=== PATIENT | male | born 1965 | race Caucasian/White ===

== ENCOUNTER 2021-04-22 17:12 | Observation (INO) | payer MEDICARE, SELFPAY ==
[2021-04-22] VITALS (11 sets, daily range): BP systolic 135–159; BP diastolic 83–115; PULSE 82–129; RESP 12–17; TEMP 36.6–36.8; O2SAT 96–97; BMI 37.3
--- NOTE | 2021-04-22 17:47 | EKG12_ITS ---
Test Reason : REPEAT Blood Pressure : / mmHG Vent. Rate : 129 BPM Atrial Rate : 258 BPM P-R Int : 000 ms QRS Dur : 078 ms QT Int : 282 ms P-R-T Axes : 064 082 209 degrees QTc Int : 413 ms Atrial flutter Septal infarct , age undetermined Nonspecific ST and T wave abnormality Abnormal ECG Confirmed by ZAHRAA CHAUDHARY, ARABELLA ([id number]), editor news MASSIMO MORGAN ([id number]) on 04/26/2021 11:31:09 AM Referred By: ZINA Confirmed By:ARABELLA VITAL MD
--- NOTE | 2021-04-22 17:47 | RAD_ITS ---
STUDY: X-RAY CHEST REASON FOR EXAM: Male, 55 years old. Chest pain. TECHNIQUE: Single AP portable view of the chest. COMPARISON: None. FINDINGS: Telemetry wires overlie the chest. The lungs are clear and expanded. There is no demonstrated pleural abnormality. Sternal cerclage wires are present from a prior sternotomy. The heart is mildly enlarged. Normal mediastinum and cece. Normal visualized pulmonary arteries. Normal visualized aortic arch and descending thoracic aorta. The thoracic spine is obscured by the mediastinum. Normal visualized ribs, clavicles, and shoulders. There is no demonstrated abnormality of the visualized soft tissue structures of the upper abdomen. RAD/Chest 1 View (Portable) IMPRESSION: Cardiomegaly with evidence of median sternotomy. There is no acute pulmonary disease. Electronically Signed: Gigi Hinds DO at 18:23 EST Tel [phone], Service support ,
--- NOTE | 2021-04-22 18:00 | EKG12_ITS ---
Test Reason : CP Blood Pressure : / mmHG Vent. Rate : 129 BPM Atrial Rate : 129 BPM P-R Int : 148 ms QRS Dur : 080 ms QT Int : 308 ms P-R-T Axes : 050 080 189 degrees QTc Int : 451 ms Atrial Flutter Septal infarct , age undetermined Nonspecific ST and T wave abnormality Abnormal ECG Confirmed by ZAHRAA CHAUDHARY, ARABELLA ([id number]), subeditor MASSIMO MORGAN ([id number]) on 04/26/2021 11:31:46 AM Referred By: TAPAN Confirmed By:ARABELLA VITAL MD
[2021-04-22 18:04] LABS: Absolute Lymphocyte Count 2.52 X10^3/uL (0.83-4.51); Absolute Neutrophil Count 3.8 X10^3/uL (2.0-7.7); Basophil# 0.05 X10^3/uL; Basophil% 0.7 % (0-1); Eosinophil# 0.36 X10^3/uL; Hematocrit 49.3 % (40-54); Hemoglobin 16.8 g/dL (13.0-16.5); Lymphocyte # 2.52 X10^3/ul (0.83-4.51); Lymphocyte % 35.1 % (19-41); Mean Corp Hgb Conc 34.1 g/dL (32-36); Mean Corpuscular Hgb 32.2 pg (27.0-32.0); Mean Corpuscular Volume 94.6 fL (80-94); Mean Platelet Vol. 9.9 fl (6.2-12.0); Monocyte# 0.38 X10^3/uL; Monocyte% 5.3 % (0-10); NRBC Flagged by Analyzer 0 % (0-5); Neutrophil # 3.84 X10^3/uL (2.7-7.7); Neutrophil % 53.5 % (47-70); Platelet Count 219 K/mm3 (150-450); RBC Distribution Width CV 13.3 % (11.6-14.6); RBC Distribution Width SD 46.4 fl (35.1-43.9); Red Blood Count 5.21 M/mm3 (4.6-6.2); White Blood Count 7.2 K/mm3 (4.4-11.0)
[2021-04-22 18:23] LABS: D-Dimer Quantitative (DVT/PE) 0.55 FEU/ug/m (0.27-0.49)
[2021-04-22 18:31] LABS: Anion Gap 3 (5-15); BUN 14 mg/dL (7-18); BUN/Creat Ratio 13.3 RATIO (10-20); Chloride 105 mmol/L (98-107); Creatinine, Serum 1.05 mg/dL (0.70-1.30); EST Glomerular Filtration Rate 78 mL/min (>60); Est Glom Filt Rate - Afr Amer 94 mL/min (>60); Estimated Creatinine Clearance 96.44 ml/min; Glucose 95 mg/dL (74-106); Potassium 3.8 mmol/L (3.5-5.1); Sodium Level 135 mmol/L (136-145); Troponin-I HS 5 pg/mL (3.0-78.0)
[2021-04-22] MEDS: dilTIAZem 25 MG/5 ML Vial 20 MG IV BOLUS (19:42)
[2021-04-22 19:52] LABS: Troponin-I HS 7 pg/mL (3.0-78.0)
--- NOTE | 2021-04-22 20:04 | EDS_ITS ---
HPI History of Present Illness Chief Complaint: Chest Pain Detail of Chief Complaint: No chest pain abnormal EKG Informant: other (Dr. 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 EKG was obtained because patient did not look well. He denied any symptoms. He denies any recent fever, chills night sweats. He denies any HEENT, cardiac, respiratory or GI symptoms. He states occasionally he may be short of breath. He denies history of PE or DVT. He denies leg pain, swelling or discoloration. He does have history of hypertension. He was at his 3-month interval evaluation by Dr. Zacarias Reed. Prior similar symptoms: No Recent Illness/Hospitalization: No PFSH PFSH Home Medications aspirin [Aspir-81] 81 mg PO DAILY 04/22/21 [History Last Taken Unknown] ergocalciferol (vitamin D2) [Vitamin D2] 50,000 unit PO QWEEK 04/22/21 [History Last Taken Unknown] loratadine [Claritin] 10 mg PO DAILY 04/22/21 [History Last Taken Unknown] metoprolol tartrate [Lopressor] 12.5 mg PO BID 04/22/21 [History Last Taken Unknown] sertraline [Zoloft] 50 mg PO DAILY 04/22/21 [History Last Taken Unknown] trazodone 50 mg PO QHS 04/22/21 [History Last Taken Unknown] Allergy/AdvReac Type Severity Reaction Status Date / Time codeine AdvReac Hives Verified 04/22/21 17:17 Social History (Updated 04/22/21 @ 20:[address] Adria Hernandez MD) household members: spouse Smoking Status: Former smoker substance use type: does not use ROS ROS ED Constitutional Constitutional ED: Denies chills, fever(s), subjective, sweats or weight loss Eyes Eyes: Denies blurry vision, change in vision or other ENT ENT ED: Denies ear pain, rhinorrhea or sore throat Cardiovascular Cardiovascular: Denies chest pain, orthopnea, palpitations, paroxysmal nocturnal dyspnea or racing heartbeat Respiratory/Chest Respiratory/Chest: Denies cough, dyspnea, dyspnea on exertion, orthopnea or paroxysmal nocturnal dyspnea Gastrointestinal Gastrointestinal: Denies abdominal pain, diarrhea, melena, nausea or vomiting Genitourinary Genitourinary ED: Denies dysuria, hematuria or urinary frequency Musculoskeletal Musculoskeletal: Denies arthralgias, back pain, myalgias or neck pain Integumentary Denies rash Neurologic Neurologic: Denies headache(s), paresthesias or weakness Endocrine Endocrinology: Denies polydipsia, polyphagia or polyuria Hematologic/Lymphatic Hematologic/Lymphatic: Denies easy bleeding or easy bruising EXAM Physical Exam Const Vital Signs: 04/22/21 17:13 04/22/21 17:26 04/22/21 17:37 Temperature 97.9 F Temperature Source Oral Pulse Rate 129 H 128 H Respiratory Rate 15 12 Respiratory Effort Normal Non-Labored Blood Pressure 156/115 H 143/101 H Blood Pressure Mean 128 115 Pulse Ox 96 97 Oxygen Delivery Method Room Air Room Air 04/22/21 17:49 04/22/21 18:51 04/22/21 19:00 Temperature Temperature Source Pulse Rate 120 H 105 H Respiratory Rate 17 17 Respiratory Effort Blood Pressure 159/97 H 135/92 H Blood Pressure Mean 117 106 Pulse Ox 96 96 Oxygen Delivery Method Room Air Room Air Room Air Positive well nourished, well developed and obese General Appearance ED: well developed and NAD; Negative for cyanotic, diaphoretic or pallor Nutritional Appearance: obese HEENT Reports TM's clear and moist mucous membranes Negative for trauma or tenderness Tympanic Membrane ED: Yes TM's clear Eyes PERRL and EOMs intact bilaterally General Eye ED: Negative for pale conjunctiva or scleral icterus Neck no lymphadenopathy, supple and no JVD Chest Wall palpation of chest normal Resp normal respiratory effort and clear to auscultation bilaterally Effort and Inspection: Negative for pain with movement Cardio regular rate, S1 normal heart sound, S2 normal heart sound and no murmurs Rate: tachycardic GI normal to inspection, nondistended, normoactive bowel sounds, non-tender and non-distended Palpation: soft Back/Spine no CVA tenderness Cervical Spine: Negative for cervical spine tenderness Thoracic Spine / Upper Back: Negative for thoracic spinal tenderness or paraspinal muscle tenderness Extremity normal to inspection Extremity Narrative: There is no asymmetry, swelling, discoloration, leg vein distention, palpable cords or tenderness along the distribution of the deep venous system. General Extremety ED: Negative for edema or tenderness General Extremity: Negative for edema Neuro oriented x3, CN's II-XII intact bilaterally and no sensory deficits noted Sensorium / Orientation: alert Motor Exam: strength 5/5 throughout Psych mental status grossly normal Skin no rashes or lesions noted and no wounds General Skin Exam: Negative for jaundice or pallor MDM MDM MDM Narrative Medical decision making narrative: Patient presents with abnormal EKG. Unable to get prior from [facility]. In January he had a valvuloplasty of his aortic valve and replacement of his tricuspid. They were bovine valves. He is not on an anticoagulant. First-degree G reveals a sinus tachycardia with slight J-point elevation anterior leads and flipped T waves inferior leads. With history of smoldering myeloma D-dimer was obtained and when corrected for age is normal. Troponin was obtained rule out cardiac ischemia. CBC to assess H&H and white count. Electrolyte panel was obtained to assess renal function. After noting patient was in a flutter with 2-1 block IV Cardizem was ordered and IV drip. Patient is now in a variable block with a rate of 86-95. The drip was held and he was given p.o. Cardizem. Lab Data Attestation: I reviewed the patient's lab results. Lab results narrative: First troponin is normal at 5. Delta is 2. Labs: Laboratory Results - last 24 hr 04/22/21 04/22/21 04/22/21 17:20 17:20 17:20 WBC 7.2 RBC 5.21 Hgb 16.8 H Hct 49.3 MCV 94.6 H MCH 32.2 H MCHC 34.1 RDW Std Deviation 46.4 H RDW Coeff of Nika 13.3 Plt Count 219 MPV 9.9 Immature Gran % (Auto) 0.400 Neut % (Auto) 53.5 Lymph % (Auto) 35.1 [place] % (Auto) 5.3 Eos % (Auto) 5.0 Baso % (Auto) 0.7 Absolute Neuts (auto) 3.8 Absolute Lymphs (auto) 2.52 Nucleated RBC % 0 D-Dimer Quant (PE/DVT) 0.55 H* Sodium 135 L Potassium 3.8 Chloride 105 Carbon Dioxide 27.0 Anion Gap 3 L BUN 14 Creatinine 1.05 Estim Creat Clear Calc 96.44 Est GFR (MDRD) Af Amer 94 Est GFR (MDRD) Non-Af 78 BUN/Creatinine Ratio 13.3 Glucose 95 Calcium 9.0 Troponin I High Sens 5 04/22/21 19:24 WBC RBC Hgb Hct MCV MCH MCHC RDW Std Deviation RDW Coeff of Nika Plt Count MPV Immature Gran % (Auto) Neut % (Auto) Lymph % (Auto) [place] % (Auto) Eos % (Auto) Baso % (Auto) Absolute Neuts (auto) Absolute Lymphs (auto) Nucleated RBC % D-Dimer Quant (PE/DVT) Sodium Potassium Chloride Carbon Dioxide Anion Gap BUN Creatinine Estim Creat Clear Calc Est GFR (MDRD) Af Amer Est GFR (MDRD) Non-Af BUN/Creatinine Ratio Glucose Calcium Troponin I High Sens 7 Radiography Chest X-Ray - ED: 1 View (Single view x-ray reveals sternotomy wires. Heart is enlarged. Cardiac silhouette is normal. Perihilar regions unremarkable. Lung parenchyma is unremarkable. Osseous structures are unremarkable.) Diagnostic Testing: Clinical Impression(s) from Imaging Studies Chest X-Ray 04/22/21 17:47 IMPRESSION: Cardiomegaly with evidence of median sternotomy. There is no acute pulmonary disease. Electronically Signed: Gigi Hinds DO at 18:23 EST Tel [phone], Service support , EKG Initial EKG: Attestation: I personally reviewed and interpreted this EKG as follows: Interpretation: Sinus Tachycardia (Sinus tachycardia rate of 129 with decreased anterior forces. Computer is reading inferior injury pattern. There is flipped T waves but there is no acute ST elevation ID. NH interval is 148 ms. QS duration 80 ms. QT duration 308 ms. [place] is normal.) Prior EKG tracings: not available for review Follow-up EKG: Attestation: I personally reviewed and interpreted this EKG as follows: Interpretation: Atrial Flutter (2-1 block rate of 128. There may be one portion of the initial EKG in lead III that would indicate atrial flutter. The EKG is unchanged from initial EKG. Again disagree with acute inferior ID that is being read by the computer.) Critical Care Time Critical Care Time: Yes Critical care time (excluding procedures): 30-74 minutes (32), Including time spent: (History, physical, documentation, obtaining old records and review from [facility], discussion with oncologist prior to arrival), Discussing w/Patient &/or Family/Organizational Effectiveness Director, Discussing w/Consultants and Arranging Admission or Transfer Discharge Plan Triage Chief Complaint: Chest Pain ED Provider: Adria Hernandez Dx/Rx/DC Orders Clinical Impression: Atrial flutter with rapid ventricular response, Hypertension Prescriptions: No Action metoprolol tartrate [Lopressor] 50 mg Tablet 12.5 mg PO BID RF: 0 trazodone 50 mg Tablet 50 mg PO QHS RF: 0 aspirin [Aspir-81] 81 mg Tablet,Delayed Release (Dr/Ec) 81 mg PO DAILY RF: 0 sertraline [Zoloft] 50 mg Tablet 50 mg PO DAILY RF: 0 loratadine [Claritin] 10 mg Tablet 10 mg PO DAILY RF: 0 Vitamin D2 1,000 unit Capsule 50,000 unit PO QWEEK RF: 0 Primary Care Provider: Nereida Beard NP Referrals: Nereida Beard NP, [employer] [Primary Care Provider] - Disposition Disposition: Acute Care Hospital [facility]
--- NOTE | 2021-04-22 20:08 | PCM.HP.STD ---
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 x 1 administered per EMS on route. Patient denied any chest pain or dyspnea or any recurrent symptoms which he had prior to valvular intervention. Patient did report having more caffeine on day of presentation than his normal (2 cups). Work-up in the ED included T97.9, heart rate initially 129, BP 156/115, respiratory rate 15, 96% on room air, CBC with WBC 7.2, hemoglobin 16.8, platelet 219 without marked shift, D-dimer 0.55, BMP with sodium 135 otherwise not marked appearing, troponin high-sensitivity initial 5 with repeat 7, chest x-ray with cardiomegaly with evidence of median sternotomy with no acute cardiopulmonary findings otherwise, EKG in ED w/ atrial flutter with 2:1 block-->variable block 4-5:1. In the ED patient administered Cardizem 60 mg p.o. x1. Initiall ED physician planning IV bolus and drip however he changed from 2:1 flutter block-->4-5:1 thus only oral. COVID rapid antigen pending. [facility] Medical History (Updated 04/22/21 @ 21:[address] Chula Hall MD) Anxiety and depression Former tobacco use Hypertension Obesity STARLA on CPAP Smoldering myeloma Valvular heart disease Home Medications aspirin [Aspir-81] 81 mg PO DAILY 04/22/21 [History Last Taken Unknown] ergocalciferol (vitamin D2) [Vitamin D2] 50,000 unit PO QWEEK 04/22/21 [History Last Taken Unknown] loratadine [Claritin] 10 mg PO DAILY 04/22/21 [History Last Taken Unknown] metoprolol tartrate [Lopressor] 12.5 mg PO BID 04/22/21 [History Last Taken Unknown] sertraline [Zoloft] 50 mg PO DAILY 04/22/21 [History Last Taken Unknown] trazodone 50 mg PO QHS 04/22/21 [History Last Taken Unknown] Allergy/AdvReac Type Severity Reaction Status Date / Time codeine AdvReac Hives Verified 04/22/21 17:17 Family History (Updated 04/22/21 @ 20:[address] Chula Hall MD) Mother CVA (cerebral vascular accident) Polycythemia vera other (Unknown paternal family history.) Surgical History (Updated 04/22/21 @ 20:[address] Chula Hall MD) H/O aortic valvuloplasty H/O tricuspid valve replacement H/O vasectomy Social History (Updated 04/22/21 @ 20:[address] Chula Hall MD) household members: significant other Smoking Status: Former smoker how long ago did patient quit smoking: Quit ~ 10 years prior, 2 ppd since teen until quit. alcohol intake: never substance use type: does not use ROS ROS Narrative Admission Review of Systems: CONSTITUTIONAL: No weight loss, fever, chills, weakness or fatigue. HEENT: Eyes: No visual loss, blurred vision, double vision or yellow sclerae. Ears, Nose, Throat: No hearing loss, sneezing, congestion, runny nose or sore throat. SKIN: No rash or itching, lesions, wounds. CARDIOVASCULAR: No chest pain, chest pressure or chest discomfort, palpitations, edema, orthopnea, syncopal events. RESPIRATORY: No shortness of breath, cough or sputum, wheezing, hemoptysis. GASTROINTESTINAL: No anorexia, nausea, vomiting or diarrhea, abdominal pain, melena, BRBPR. GENITOURINARY: No dysuria, frequency, urgency or retention. NEUROLOGICAL: No headache, dizziness, syncope, paralysis, ataxia, numbness or tingling in the extremities, focal weakness, change in bowel or bladder control, seizure. MUSCULOSKELETAL: No muscle, back pain, joint pain or stiffness. HEMATOLOGIC: No anemia, bleeding or bruising. LYMPHATICS: No enlarged nodes. No history of splenectomy. PSYCHIATRIC: + history of depression or anxiety. ENDOCRINOLOGIC: No reports of sweating, cold or heat intolerance. No polyuria or polydipsia. ALLERGIES: No history of asthma, hives, eczema or rhinitis. Vital Signs Vital Signs Vital Signs: 04/22/21 17:13 04/22/21 17:26 04/22/21 17:37 Temperature 97.9 F Temperature Source Oral Pulse Rate 129 H 128 H Respiratory Rate 15 12 Respiratory Effort Normal Non-Labored Blood Pressure 156/115 H 143/101 H Blood Pressure Mean 128 115 Pulse Ox 96 97 Oxygen Delivery Method Room Air Room Air 04/22/21 17:49 04/22/21 18:51 04/22/21 19:00 Temperature Temperature Source Pulse Rate 120 H 105 H Respiratory Rate 17 17 Respiratory Effort Blood Pressure 159/97 H 135/92 H Blood Pressure Mean 117 106 Pulse Ox 96 96 Oxygen Delivery Method Room Air Room Air Room Air Weight Weight: 307 lb 1.663 oz Body Mass Index (BMI) 37.3 Physical Exam Narrative Physical Examination: General: Awake, alert, oriented x 3 and cooperative, seated upright in the ED bed in no apparent distress. Skin: Normal color, normal turgor, no icterus, no cyanosis. HEENT: AT/NC, EOMI, PERRLA, MMM, no carotid bruits or JVD noted; however thickened neck makes examination difficult. Lungs: CTA bilaterally, moderate effort, mild decrease BL bases, no rales, ronchi or wheezing. Heart: Irregular irregular; no gallop, rub audible, status post valvuloplasty and TVR with murmur. Abdomen: Soft, obese, NTTP, ND, normal BS, no obvious evidence of HSM. Extremities: No cyanosis, clubbing, or edema. Neurological: Patient awake, alert, oriented as noted, cognitive function intact; pupils equally reactive to light and accommodation, cranial nerves II-XII grossly normal, moving all 4 extremities, no focal deficits, strength preserved. Psychiatric: Affect appears mildly flat otherwise normal, deferring much of history to his daughter who is present, no acute evidence of depressive or anxiety feelings. Results Lab / Micro Data Result Diagrams: 04/22/21 17:20 04/22/21 17:20 Labs: Laboratory Results - last 24 hr 04/22/21 17:20: WBC 7.2, RBC 5.21, Hgb 16.8 H, Hct 49.3, MCV 94.6 H, MCH 32.2 H, MCHC 34.1, RDW Std Deviation 46.4 H, RDW Coeff of Nika 13.3, Plt Count 219, MPV 9.9, Immature Gran % (Auto) 0.400, Neut % (Auto) 53.5, Lymph % (Auto) 35.1, [place] % (Auto) 5.3, Eos % (Auto) 5.0, Baso % (Auto) 0.7, Absolute Neuts (auto) 3.8, Absolute Lymphs (auto) 2.52, Nucleated RBC % 0 04/22/21 17:20: Sodium 135 L, Potassium 3.8, Chloride 105, Carbon Dioxide 27.0, Anion Gap 3 L, BUN 14, Creatinine 1.05, Estim Creat Clear Calc 96.44, Est GFR (MDRD) Af Amer 94, Est GFR (MDRD) Non-Af 78, BUN/Creatinine Ratio 13.3, Glucose 95, Calcium 9.0, Troponin I High Sens 5 04/22/21 17:20: D-Dimer Quant (PE/DVT) 0.55 H* 04/22/21 19:24: Troponin I High Sens 7 Radiology Impression Chest X-Ray 04/22/21 17:47 IMPRESSION: Cardiomegaly with evidence of median sternotomy. There is no acute pulmonary disease. Electronically Signed: Gigi Hinds DO at 18:23 EST Tel [phone], Service support , Assessment & Plan Assessment/Plan (1) Atrial flutter with rapid ventricular response: PLAN: The patient is a 55 y/o M w/ PMHx: STARLA on CPAP q HS, Anxiety and Depression, Valvular Heart Disease s/p AV valvuloplasty and TVR w/ bovine 11/2020, HTN, Hx smoldering myeloma, Former tobacco use, Obesity who presents to the [facility] ED on 04/22/21 with history of routine oncology visit on day of presentation prior to ED arrival with EMS call secondary to oncologist physician concern for abnormal EKG strips at the office concerning for ST elevation with history of recent heart valve replacement in November 2020 with no patient complaints at that time prompting ED transition. #1. New onset, Paroxsymal atrial flutter w/ RVR: EKG in ED w/ atrial flutter with 2:1 block-->variable block 4-5:1. Patient administered Cardizem oral as well as IV bolus with transition to Cardizem drip in ED. Will admit to PCU, maintain on telemetry, obtain cardiac enzyme serial set with initial 2 unremarkable, obtain magnesium level, obtain ECHO, obtain TSH level. Will initiate on therapeutic Lovenox. Will increase home metoprolol regimen pending Cardiology evaluation. #2. Valvular Heart Disease: s/p AV valvulopasty and TVR bovine 11/2020, ECHO requested. #3. Hypertension: Will continue home metoprolol but increase dose, continue regimen as noted above #1, as needed IV hydralazine. #4. Anxiety and Depression: Will continue home sertraline and trazodone regimen. #5. Smoldering Myeloma: Following with Dr. Reed, high risk patient, no current treatments given smoldering. Discussed case with Dr. Reed and amenable to anticoagulation if continued need. #6. Allergic rhinitis: Will continue home claritin. #7. Former tobacco use: Encourage continued tobacco cessation. #8. Obesity: Weight loss and lifestyle changes encouraged. #9. STARLA: CPAP q HS. #10. DVT prophylaxis: SCDs, therapeutic Lovenox. #11. CODE STATUS: Full Code. Daughter is SHELDON, LW in place. Charges/Coding Visit Charges OBSV E&M: 66325 Initial observation care L3
[2021-04-22] MEDS: dilTIAZem 60 MG Tablet PO (20:53)
[2021-04-22 20:55] LABS: Magnesium 2.2 mg/dL (1.6-2.6)
[2021-04-22 21:04] LABS: BNP,B-Type NATRIURETIC PEPTIDE 85.4 pg/mL (0-100)
--- NOTE | 2021-04-22 21:12 | ECHOD_ITS ---
Reason For Study: AFIB/FLUTTER Procedure This was a 2D Doppler, Color Flow transthoracic echocardiogram. The study was technically difficult. Exam performed portable in patient room. Left Ventricle Based upon the 2D echocardiographic images obtained there appears to be grossly normal left ventricular size with borderline low LV systolic function. The estimated ejection fraction is 50 %. Post operative septal motion. Unable to assess diastolic dysfunction. Right Ventricle Normal RV size. Normal systolic function. Atria The left atrium is mildly enlarged. The right atrium is mildly enlarged. No doppler evidence for ASD. Mitral Valve There is mild mitral annular calcification. Mild focal mitral valve calcification of the anterior leaflet. Trivial mitral valve insufficiency. Tricuspid Valve Unable to estimate RV systolic pressure/pulmonary artery pressure due to technically difficult study. Stable bioprosthetic tricuspid valve apparatus. Mild transvalvular insufficiency of the tricuspid valve. Aortic Valve The aortic valve is not well visualized. Pulmonic Valve The pulmonic valve is not well visualized. Great Vessels The aortic root is not well visualized. Pericardium/Pleural Small to moderate pericardial effusion appearing predominantly posterior - lateral. There are no echocardiographic indications of cardiac tamponade. MMode/2D Measurements & Calculations LVIDd: 4.8 cm IVSd: 1.3 cm LAV(MOD-bp): 98.8 ml LVIDs: 3.5 cm LVPWd: 1.4 cm LAV(MOD-bp) Indexed: 37.9 ml/m2 RVDd: 4.0 cm FS: 26.5 % LAV(MOD-sp2): 99.3 ml LAV(MOD-sp4): 94.2 ml LA dimension(2D): 5.6 cm LA A4 area: 27.9 cm2 RA A4 area: 21.5 cm2 Doppler Measurements & Calculations MV E max ezequiel: 109.1 cm/sec Ao V2 max: 180.4 cm/sec LV V1 max: 71.9 cm/sec Ao max P.2 mmHg LV V1 max P.1 mmHg PA V2 max: 85.6 cm/sec ECHO/Echo Complete Interpretation Summary The study was technically difficult. Based upon the 2D echocardiographic images obtained there appears to be grossly normal left ventricular size with borderline low LV systolic function. The estimated ejection fraction is 50 %. Post operative septal motion. The left atrium is mildly enlarged. The right atrium is mildly enlarged. There is mild mitral annular calcification. Mild focal mitral valve calcification of the anterior leaflet. Trivial mitral valve insufficiency. Stable bioprosthetic tricuspid valve apparatus. Mild transvalvular insufficiency of the tricuspid valve. Small to moderate pericardial effusion appearing predominantly posterior - late ral. There are no echocardiographic indications of cardiac tamponade. Unable to estimate RV systolic pressure/pulmonary artery pressure due to techni hitesh difficult study. Unable to assess diastolic dysfunction. Ordering Physician: Chula Hall Referring Physician: Alisha Beard Performed By: Karime Juares, GRETCHEN, RVT
--- NOTE | 2021-04-22 21:13 | PCS.PANDOC ---
PANDEMIC DOCUMENTATION INITIATED: Date: 11/23/2020 Time: 190
[2021-04-22 21:32] LABS: International Normalized Ratio 1.1; Partial Thromboplast Time 27.8 Seconds (24.1-36.2); Prothrombin Time (Protime)PT. 13.3 SECONDS (11.7-14.9)
[2021-04-22] MEDS: Metoprolol Tartrate 25 MG Tablet PO (22:46)
[2021-04-22] MEDS: Enoxaparin 150 MG/ML Syringe 140 MG SC (22:46)
[2021-04-22] MEDS: traZODone 50 MG Tablet PO (22:47)
[2021-04-23] VITALS (9 sets, daily range): BP systolic 110–120; BP diastolic 69–98; PULSE 69–110; RESP 16–18; TEMP 36.5–36.7; O2SAT 93–100
[2021-04-23 00:32] LABS: Troponin-I HS 5 pg/mL (3.0-78.0)
[2021-04-23 04:58] LABS: Absolute Lymphocyte Count 2.08 X10^3/uL (0.83-4.51); Absolute Neutrophil Count 3.5 X10^3/uL (2.0-7.7); Basophil# 0.05 X10^3/uL; Basophil% 0.8 % (0-1); Eosinophil# 0.31 X10^3/uL; Hematocrit 43.9 % (40-54); Hemoglobin 14.9 g/dL (13.0-16.5); Lymphocyte # 2.08 X10^3/ul (0.83-4.51); Lymphocyte % 33.3 % (19-41); Mean Corp Hgb Conc 33.9 g/dL (32-36); Mean Corpuscular Hgb 31.4 pg (27.0-32.0); Mean Corpuscular Volume 92.4 fL (80-94); Mean Platelet Vol. 9.9 fl (6.2-12.0); Monocyte# 0.28 X10^3/uL; Monocyte% 4.5 % (0-10); NRBC Flagged by Analyzer 0 % (0-5); Neutrophil % 55.9 % (47-70); Platelet Count 188 K/mm3 (150-450); RBC Distribution Width CV 13.2 % (11.6-14.6); RBC Distribution Width SD 44.5 fl (35.1-43.9); Red Blood Count 4.75 M/mm3 (4.6-6.2); White Blood Count 6.3 K/mm3 (4.4-11.0)
[2021-04-23] MEDS: Enoxaparin 150 MG/ML Syringe 140 MG SC (05:16)
[2021-04-23 06:01] LABS: ALB/GLOB Ratio 0.5 RATIO (0.9-2.4); AST(SGOT) 13 U/L (15-37); Alanine Aminotransfer ALT/SGPT 24 U/L (16-61); Albumin, Serum 2.8 g/dL (3.2-5.0); Alkaline Phosphatase 54 U/L (45-117); Anion Gap 5 (5-15); BUN 11 mg/dL (7-18); BUN/Creat Ratio 12.7 RATIO (10-20); Calcium,Total 8.3 mg/dL (8.5-10.1); Chloride 106 mmol/L (98-107); Creatinine, Serum 0.86 mg/dL (0.70-1.30); EST Glomerular Filtration Rate 97 mL/min (>60); Est Glom Filt Rate - Afr Amer 118 mL/min (>60); Estimated Creatinine Clearance 117.75 ml/min; Globulin 5.3 g/dL (2.2-4.2); Glucose 94 mg/dL (74-106); Potassium 3.7 mmol/L (3.5-5.1); Protein, Total 8.1 g/dL (6.4-8.2); Sodium Level 137 mmol/L (136-145); T4 Free Direct 1.08 ng/dL (0.76-1.46); Thyroid Stim Hormone (TSH) 2.27 uIU/mL (0.358-3.74)
[2021-04-23] MEDS: Sertraline 50 MG Tablet PO (07:53)
[2021-04-23] MEDS: Aspirin E.C. 81 MG Tablet PO (07:53)
[2021-04-23] MEDS: Loratadine 10 MG Tablet PO (07:53)
[2021-04-23] MEDS: Metoprolol Tartrate 25 MG Tablet PO (07:53)
--- NOTE | 2021-04-23 07:57 | CPS ---
PATIENT REFUSED INCENTIVE SPIROMETRY AT TIME OF VISIT.
--- NOTE | 2021-04-23 10:21 | PCM.PN.HOSP ---
Subjective Subjective Patient seen and examined. Patient lying in bed no distress noted. Patient currently undergoing echocardiogram. Patient denies any chest pain, shortness of breath, palpitations. Objective Data Objective Data Vital Signs: Vital Signs Temp Pulse Resp BP Pulse Ox 97.7 F L 78 18 118/69 93 04/23/21 07:50 04/23/21 08:04 04/23/21 08:04 04/23/21 07:50 04/23/21 09:32 Oxygen Flow Rate (L/min) 0 Oxygen Delivery Method Room Air Weight: 294 lb 1.546 oz Body Mass Index (BMI) 37.3 Intake & Output: Intake and Output for Last 24 Hours 04/21/21 04/22/21 04/23/21 23:59 23:59 23:59 Intake Total 240 / 240 Balance 240 / 240 Lab / Micro Data Result Diagrams: 04/23/21 04:21 04/23/21 04:21 Labs: Laboratory Results - last 24 hr 04/22/21 17:20: WBC 7.2, RBC 5.21, Hgb 16.8 H, Hct 49.3, MCV 94.6 H, MCH 32.2 H, MCHC 34.1, RDW Std Deviation 46.4 H, RDW Coeff of Nika 13.3, Plt Count 219, MPV 9.9, Immature Gran % (Auto) 0.400, Neut % (Auto) 53.5, Lymph % (Auto) 35.1, [place] % (Auto) 5.3, Eos % (Auto) 5.0, Baso % (Auto) 0.7, Absolute Neuts (auto) 3.8, Absolute Lymphs (auto) 2.52, Nucleated RBC % 0 04/22/21 17:20: Sodium 135 L, Potassium 3.8, Chloride 105, Carbon Dioxide 27.0, Anion Gap 3 L, BUN 14, Creatinine 1.05, Estim Creat Clear Calc 96.44, Est GFR (MDRD) Af Amer 94, Est GFR (MDRD) Non-Af 78, BUN/Creatinine Ratio 13.3, Glucose 95, Calcium 9.0, Troponin I High Sens 5 04/22/21 17:20: D-Dimer Quant (PE/DVT) 0.55 H* 04/22/21 17:20: Magnesium 2.2 04/22/21 17:20: B-Natriuretic Peptide 85.4 04/22/21 17:20: PT 13.3, INR 1.1, APTT 27.8 04/22/21 19:24: Troponin I High Sens 7 04/22/21 23:57: Troponin I High Sens 5 04/23/21 04:21: WBC 6.3, RBC 4.75, Hgb 14.9, Hct 43.9, MCV 92.4, MCH 31.4, MCHC 33.9, RDW Std Deviation 44.5 H, RDW Coeff of Nkia 13.2, Plt Count 188, MPV 9.9, Immature Gran % (Auto) 0.500, Neut % (Auto) 55.9, Lymph % (Auto) 33.3, [place] % (Auto) 4.5, Eos % (Auto) 5.0, Baso % (Auto) 0.8, Absolute Neuts (auto) 3.5, Absolute Lymphs (auto) 2.08, Nucleated RBC % 0 04/23/21 04:21: Sodium 137, Potassium 3.7, Chloride 106, Carbon Dioxide 26.0, Anion Gap 5, BUN 11, Creatinine 0.86, Estim Creat Clear Calc 117.75, Est GFR (MDRD) Af Amer 118, Est GFR (MDRD) Non-Af 97, BUN/Creatinine Ratio 12.7, Glucose 94, Calcium 8.3 L, Total Bilirubin 1.10 H, AST 13 L, ALT 24, Alkaline Phosphatase 54, Total Protein 8.1, Albumin 2.8 L, Globulin 5.3 H, Albumin/Globulin Ratio 0.5 L, TSH 2.27, Free T4 1.08 Micro: Microbiology 04/22/21 20:05 Nasal Secretion SARS-CoV-2 Antigen (Rapid) - Final Radiography Diagnostic Testing: Radiology Impression Chest X-Ray 04/22/21 17:47 IMPRESSION: Cardiomegaly with evidence of median sternotomy. There is no acute pulmonary disease. Electronically Signed: Gigi Hinds DO at 18:23 EST Tel [phone], Service support , Physical Exam Const alert, oriented x3 and no apparent distress HEENT head/scalp atraumatic and moist oral mucous membranes Head and Scalp: normocephalic Eyes conjunctivae normal and no scleral icterus Neck supple General: trachea midline Resp normal respiratory effort and clear to auscultation bilaterally Effort and Inspection: able to speak in complete sentences and symmetric chest movement Cardio regular rate, regular rhythm, S1 normal heart sound and S2 normal heart sound GI normal to inspection, nondistended, normoactive bowel sounds, soft to palpation and non-tender Extremity normal to inspection, full ROM and no clubbing, cyanosis or edema Peripheral Pulses: Yes pulses 2+ throughout Skin no rashes or lesions noted and skin turgor normal Neuro oriented x3, moves all extremities, no focal motor deficits and no sensory deficits noted Sensorium / Orientation: awake and alert Speech: speech normal Psych affect normal Assessment & Plan Assessment/Plan (1) Atrial flutter with rapid ventricular response: PLAN: 1. A. fib with RVR -Echocardiogram pending -Cardiology consulted -Continue metoprolol -Continue therapeutic Lovenox -TSH, T4, magnesium within normal limits -Troponins negative 2. 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 Reed DVT prophylaxis-therapeutic Lovenox This patient was seen by NAUN Herbert under the supervision of Dr. Iyer. 7 minutes spent in clinical coordination of patient's plan of care.
[2021-04-23] MEDS: dilTIAZem CD 120 MG Capsule PO (13:23)
--- NOTE | 2021-04-23 13:35 | DCINST_ITS ---
Discharge Instructions Diet Discharge Diet: No restrictions Activity Discharge Activity: Return to Normal Activity Dressing / Incision Call your doctor if you observe: Shortness of breath, Swelling in the ankles, Chest pain and Increased palpitations (irregular heartbeat) Follow Up Care Test Results: Test results from this visit will be discussed in further detail at your follow-up appointment, if applicable. Discharge Plan Admission Admit Date/Time: 04/22/21 20:19 Primary Reason for Your Visit: Afib with RVR Attending Provider: Elinor Iyer Primary Care Provider: Nereida Beard NP Consulting Providers: Jeffrey Guillaume Discharge Orders/Prescriptions Prescriptions: New diltiazem HCl 120 mg Capsule,Extended Release 24hr 120 mg PO DAILY 30 Days Qty: 30 RF: 0 metoprolol tartrate 25 mg Tablet 25 mg PO BID 30 Days Qty: 60 RF: 0 Continued trazodone 50 mg Tablet 50 mg PO QHS RF: 0 aspirin 81 mg Tablet,Delayed Release (Dr/Ec) 81 mg PO DAILY RF: 0 sertraline [Zoloft] 50 mg Tablet 50 mg PO DAILY RF: 0 loratadine [Claritin] 10 mg Tablet 10 mg PO DAILY RF: 0 ergocalciferol (vitamin D2) 1,000 unit Capsule 50,000 unit PO QWEEK RF: 0 Discontinued metoprolol tartrate [Lopressor] 50 mg Tablet 12.5 mg PO BID RF: 0 Referrals / Follow Up: Nereida Beard NP, [employer]-[facility] [Primary Care Provider] - Within 2 Weeks Disposition Disposition (needs filled in before D/C Order can be placed): Home, Self Care
--- NOTE | 2021-04-23 13:39 | PCM.DC.SUM ---
Documented by User: NANU Herbert 04/23/21 13:43 Providers Date of Admission: 04/22/21 Primary Care Physician: NAUN Anne Consultations 04/22/21 21:12 Consult: Cardiology Routine Consulting Provider: Jeffrey Guillaume Reason for Consult: New onset afib EMERGENT Consult: No MD Notified: Yes Date Notified: 04/22/21 Time Notified: 20:22 Method of Notification: cortext Reason For Visit: NEW ONSET ATRIAL FLUTTER Diagnosis Discharge Diagnosis (1) Atrial flutter with rapid ventricular response: Status: Acute Code(s): I48.92 - Unspecified atrial flutter Medications at Discharge Home Medications aspirin 81 mg PO DAILY 04/22/21 ergocalciferol (vitamin D2) 50,000 unit PO QWEEK 04/22/21 loratadine [Claritin] 10 mg PO DAILY 04/22/21 sertraline [Zoloft] 50 mg PO DAILY 04/22/21 trazodone 50 mg PO QHS 04/22/21 diltiazem HCl 120 mg PO DAILY 30 Days #30 cap 04/23/21 metoprolol tartrate 25 mg PO BID 30 Days #60 tab 04/23/21 Hospital Course Operations None Procedures 2-D Echocardiogram and EKG Summary of Care Provided Hospital Course: Patient is a 55-year-old male who initially presented to the ER at the direction of his oncologist due to patient having a high heart rate in the office which was noted to be irregular. Patient was admitted for atrial fibrillation with RVR which is new for the patient and was given IV bolus of Cardizem and was initiated on p.o. Cardizem. Patient's metoprolol was increased from 12.5 mg twice daily to 25 mg twice daily. Patient underwent echocardiogram during this admission which demonstrates an EF of 50%. Patient will be discharged home with instructions to follow-up with primary care provider in the next 2 weeks. This patient was seen by NAUN Herbert under the supervision of Dr. Iyer 9 minutes spent in clinical coordination of patient's plan of care. Physical Exam Const alert, oriented x3 and no apparent distress HEENT head/scalp atraumatic and moist oral mucous membranes Eyes conjunctivae normal and no scleral icterus Neck supple General: trachea midline Resp normal respiratory effort and clear to auscultation bilaterally Effort and Inspection: able to speak in complete sentences and symmetric chest movement Cardio regular rate, regular rhythm, S1 normal heart sound and S2 normal heart sound GI normal to inspection, nondistended, normoactive bowel sounds, soft to palpation and non-tender Extremity normal to inspection, full ROM and no clubbing, cyanosis or edema Skin no rashes or lesions noted and skin turgor normal Neuro oriented x3, moves all extremities, no focal motor deficits and no sensory deficits noted Sensorium / Orientation: awake and alert Speech: speech normal Psych affect normal Weight / BMI Weight Weight: 294 lb 1.546 oz Body Mass Index (BMI) 37.3 ABG / Lab / Microbiology Data Result Diagrams: 04/23/21 04:21 04/23/21 04:21 Laboratory: Laboratory Results - last 24 hr 04/22/21 17:20: WBC 7.2, RBC 5.21, Hgb 16.8 H, Hct 49.3, MCV 94.6 H, MCH 32.2 H, MCHC 34.1, RDW Std Deviation 46.4 H, RDW Coeff of Nika 13.3, Plt Count 219, MPV 9.9, Immature Gran % (Auto) 0.400, Neut % (Auto) 53.5, Lymph % (Auto) 35.1, [place] % (Auto) 5.3, Eos % (Auto) 5.0, Baso % (Auto) 0.7, Absolute Neuts (auto) 3.8, Absolute Lymphs (auto) 2.52, Nucleated RBC % 0 04/22/21 17:20: Sodium 135 L, Potassium 3.8, Chloride 105, Carbon Dioxide 27.0, Anion Gap 3 L, BUN 14, Creatinine 1.05, Estim Creat Clear Calc 96.44, Est GFR (MDRD) Af Amer 94, Est GFR (MDRD) Non-Af 78, BUN/Creatinine Ratio 13.3, Glucose 95, Calcium 9.0, Troponin I High Sens 5 04/22/21 17:20: D-Dimer Quant (PE/DVT) 0.55 H* 04/22/21 17:20: Magnesium 2.2 04/22/21 17:20: B-Natriuretic Peptide 85.4 04/22/21 17:20: PT 13.3, INR 1.1, APTT 27.8 04/22/21 19:24: Troponin I High Sens 7 04/22/21 23:57: Troponin I High Sens 5 04/23/21 04:21: WBC 6.3, RBC 4.75, Hgb 14.9, Hct 43.9, MCV 92.4, MCH 31.4, MCHC 33.9, RDW Std Deviation 44.5 H, RDW Coeff of Nika 13.2, Plt Count 188, MPV 9.9, Immature Gran % (Auto) 0.500, Neut % (Auto) 55.9, Lymph % (Auto) 33.3, [place] % (Auto) 4.5, Eos % (Auto) 5.0, Baso % (Auto) 0.8, Absolute Neuts (auto) 3.5, Absolute Lymphs (auto) 2.08, Nucleated RBC % 0 04/23/21 04:21: Sodium 137, Potassium 3.7, Chloride 106, Carbon Dioxide 26.0, Anion Gap 5, BUN 11, Creatinine 0.86, Estim Creat Clear Calc 117.75, Est GFR (MDRD) Af Amer 118, Est GFR (MDRD) Non-Af 97, BUN/Creatinine Ratio 12.7, Glucose 94, Calcium 8.3 L, Total Bilirubin 1.10 H, AST 13 L, ALT 24, Alkaline Phosphatase 54, Total Protein 8.1, Albumin 2.8 L, Globulin 5.3 H, Albumin/Globulin Ratio 0.5 L, TSH 2.27, Free T4 1.08 Microbiology: Microbiology 04/22/21 20:05 Nasal Secretion SARS-CoV-2 Antigen (Rapid) - Final Radiography Diagnostic Testing: Radiology Impression Chest X-Ray 04/22/21 17:47 IMPRESSION: Cardiomegaly with evidence of median sternotomy. There is no acute pulmonary disease. Electronically Signed: Gigi Hinds DO at 18:23 EST Tel [phone], Service support , Echocardiogram 04/22/21 21:12 Interpretation Summary The study was technically difficult. Based upon the 2D echocardiographic images obtained there appears to be grossly normal left ventricular size with borderline low LV systolic function. The estimated ejection fraction is 50 %. Post operative septal motion. The left atrium is mildly enlarged. The right atrium is mildly enlarged. There is mild mitral annular calcification. Mild focal mitral valve calcification of the anterior leaflet. Trivial mitral valve insufficiency. Stable bioprosthetic tricuspid valve apparatus. Mild transvalvular insufficiency of the tricuspid valve. Small to moderate pericardial effusion appearing predominantly posterior - lateral. There are no echocardiographic indications of cardiac tamponade. Unable to estimate RV systolic pressure/pulmonary artery pressure due to technically difficult study. Unable to assess diastolic dysfunction. Ordering Physician: Chula Hall Referring Physician: Alisha Beard Performed By: Karime Juares RDCS, RVT D/C Instructions Discharge Diet: No restrictions Call your doctor if you observe: Shortness of breath, Swelling in the ankles, Chest pain and Increased palpitations (irregular heartbeat) Meaningful Use Info Meaningful Use Diagnoses (Choose all that apply): None applicable Discharge Plan Admission Admit Date/Time: 04/22/21 20:19 Primary Reason for Your Visit: Afib with RVR Attending Provider: Elinor Iyer Primary Care Provider: Nereida Beard NP Consulting Providers: Jeffrey Guillaume Discharge Orders/Prescriptions Prescriptions: New diltiazem HCl 120 mg Capsule,Extended Release 24hr 120 mg PO DAILY 30 Days Qty: 30 RF: 0 metoprolol tartrate 25 mg Tablet 25 mg PO BID 30 Days Qty: 60 RF: 0 Continued trazodone 50 mg Tablet 50 mg PO QHS RF: 0 aspirin 81 mg Tablet,Delayed Release (Dr/Ec) 81 mg PO DAILY RF: 0 sertraline [Zoloft] 50 mg Tablet 50 mg PO DAILY RF: 0 loratadine [Claritin] 10 mg Tablet 10 mg PO DAILY RF: 0 ergocalciferol (vitamin D2) 1,000 unit Capsule 50,000 unit PO QWEEK RF: 0 Discontinued metoprolol tartrate [Lopressor] 50 mg Tablet 12.5 mg PO BID RF: 0 Referrals / Follow Up: Nereida Beard NP, JOSETTE-C [Primary Care Provider] - Within 2 Weeks Disposition Disposition (needs filled in before D/C Order can be placed): Home, Self Care Documented by User: Dr. Elinor Iyer MD 04/23/21 14:06 Providers Date of Admission: 04/22/21 Reason For Visit: NEW ONSET ATRIAL FLUTTER Medications at Discharge Home Medications aspirin 81 mg PO DAILY 04/22/21 ergocalciferol (vitamin D2) 50,000 unit PO QWEEK 04/22/21 loratadine [Claritin] 10 mg PO DAILY 04/22/21 sertraline [Zoloft] 50 mg PO DAILY 04/22/21 trazodone 50 mg PO QHS 04/22/21 diltiazem HCl 120 mg PO DAILY 30 Days #30 cap 04/23/21 metoprolol tartrate 25 mg PO BID 30 Days #60 tab 04/23/21 ABG / Lab / Microbiology Data Result Diagrams: 04/23/21 04:21 04/23/21 04:21 Discharge Plan Admission Admit Date/Time: 04/22/21 20:19 Primary Reason for Your Visit: Afib with RVR Attending Provider: Elinor Iyer Primary Care Provider: Nereida Beard NP Consulting Providers: Jeffrey Guillaume Discharge Orders/Prescriptions Prescriptions: New diltiazem HCl 120 mg Capsule,Extended Release 24hr 120 mg PO DAILY 30 Days Qty: 30 RF: 0 metoprolol tartrate 25 mg Tablet 25 mg PO BID 30 Days Qty: 60 RF: 0 Continued trazodone 50 mg Tablet 50 mg PO QHS RF: 0 aspirin 81 mg Tablet,Delayed Release (Dr/Ec) 81 mg PO DAILY RF: 0 sertraline [Zoloft] 50 mg Tablet 50 mg PO DAILY RF: 0 loratadine [Claritin] 10 mg Tablet 10 mg PO DAILY RF: 0 ergocalciferol (vitamin D2) 1,000 unit Capsule 50,000 unit PO QWEEK RF: 0 Discontinued metoprolol tartrate [Lopressor] 50 mg Tablet 12.5 mg PO BID RF: 0 Referrals / Follow Up: Nereida Beard NP, [employer]-C [Primary Care Provider] - Within 2 Weeks Disposition Disposition (needs filled in before D/C Order can be placed): Home, Self Care Charges/Coding Addendum Addendum: Patient seen by Nataly MAGALLON under my supervision Patient is a 55-year-old male with past medical history as outlined was admitted through the ED on 04/22/2021 on account of abnormal EKG strips seen in his oncologist office. He had gone for follow-up at his oncologist office for smoldering myeloma. EKG done was concerning for A. fib so he was sent to the ED. Patient has a history of sleep apnea as well and also has a history of coffee consumption. D-dimer was not elevated and high-sensitivity troponin was cycled and was not elevated. Chest x-ray showed cardiomegaly and initial EKG showed atrial flutter with 2-1 block. He was started on p.o. Cardizem in the ED. He did not require a cardizem drip. COVID test done was negative. Cardiology was consulted. Patient had had tricuspid valve repair in November 2020. He was admitted and managed for new onset afib/atrial flutter. Cardiology was consulted. Cardiology recommended patient be placed on Cardizem CD 120 mg daily and to continue on aspirin 81 mg daily. His [id number] was 1 so patient was not started on any other anticoagulation. He had 2D echo which showed EF of 50%. He could not be given the newer oral anticoagulants due to his valvular replacement per cardiology. Patient remained stable and was discharged home on 04/23/2021 and is to follow-up with his primary care doctor and cardiology in 1 to 2 weeks. Patient seen and examined. He had no complaints and felt well. REview of sysems is otherwise neative. Labs and vitals reviewed. Home meds reviewed and reconciled. O/E: Const alert, oriented x3 and no apparent distress HEENT head/scalp atraumatic and moist oral mucous membranes Eyes conjunctivae normal and no scleral icterus Neck supple General: trachea midline Resp normal respiratory effort and clear to auscultation bilaterally Cardio A. fib, rate controlled. Normal S1 and S2. No murmurs. GI normal to inspection, nondistended, normoactive bowel sounds, soft to palpation and non-tender Extremity normal to inspection, full ROM and no clubbing, cyanosis or edema Skin no rashes or lesions noted and skin turgor normal Neuro oriented x3, moves all extremities, no focal motor deficits and no sensory deficits noted Sensorium / Orientation: awake and alert Speech: speech normal Psych affect normal Plan is for discharge home today on metoprolol 25 mg twice daily as well as p.o. Cardizem 120 mg daily. To continue on aspirin 81 mg daily. Total time I spent on patient's care today: 35 mins Rest as per Nataly Sandoval [employer]-[facility];s note, which I have reviewed and endorsed. Visit Charges OBSV E&M: 08649 Observation care discharge
--- NOTE | 2021-04-23 14:14 | PCM.CONS.C ---
Assessment & Plan Assessment/Plan (1) Atrial flutter with rapid ventricular response: PLAN: Rate is better at this time. It will be reasonable to add Cardizem CD 120 mg p.o. daily in addition to the metoprolol 25 mg p.o. twice daily. Patient's CHADS2 score is 1. Discussed Coumadin (as patient has valvular heart disease) versus aspirin with the patient in detail. Explained the risks and benefits of both approaches. We will proceed with aspirin at this time. Patient is agreeable and prefers this approach as well. He will follow-up with us as an outpatient. Okay to discharge home from a cardiac standpoint. HPI Consult Data Date of Consult: 04/23/21 HPI Narrative HPI Narrative: DANIA STRICKLAND, is a 55 M who presents with new onset atrial flutter/fibrillation. He was at his oncologist's office for a routine visit and was found to have atrial flutter and was sent to the emergency room. Patient denies any significant cardiac complaints. He was initially started on IV Cardizem and this has been stopped and his metoprolol increased from 12.5 mg p.o. twice daily to 25 mg p.o. twice daily. From the patient's description it appears that he had bicuspid aortic valve and had bioprosthetic aortic valve replacement in the past. [facility] Medical History (Updated 04/22/21 @ 21:[address] Chula Hall MD) Anxiety and depression Former tobacco use Hypertension Obesity STARLA on CPAP Smoldering myeloma Valvular heart disease Home Medications aspirin 81 mg PO DAILY 04/22/21 [History Last Taken Unknown] ergocalciferol (vitamin D2) 50,000 unit PO QWEEK 04/22/21 [History Last Taken Unknown] loratadine [Claritin] 10 mg PO DAILY 04/22/21 [History Last Taken Unknown] sertraline [Zoloft] 50 mg PO DAILY 04/22/21 [History Last Taken Unknown] trazodone 50 mg PO QHS 04/22/21 [History Last Taken Unknown] diltiazem HCl 120 mg PO DAILY 30 Days #30 cap 04/23/21 [Rx Last Taken Unknown] metoprolol tartrate 25 mg PO BID 30 Days #60 tab 04/23/21 [Rx Last Taken Unknown] Allergy/AdvReac Type Severity Reaction Status Date / Time codeine AdvReac Hives Verified 04/22/21 17:17 Family History (Updated 04/22/21 @ 20:[address] Chula Hall MD) Mother CVA (cerebral vascular accident) Polycythemia vera Family History other Surgical History (Updated 04/22/21 @ 20:[address] Chula Hall MD) H/O aortic valvuloplasty H/O tricuspid valve replacement H/O vasectomy Social History (Updated 04/22/21 @ 20:[address] Chula Hall MD) household members: significant other Smoking Status: Former smoker how long ago did patient quit smoking: Quit ~ 10 years prior, 2 ppd since teen until quit. alcohol intake: never substance use type: does not use Physical Exam Const alert and oriented x3 Orientation / Consciousness: awake HEENT normocephalic Eyes no scleral icterus Neck supple Resp normal respiratory effort Cardio Cardio Narrative: Irregular rhythm Skin no rashes or lesions noted Neuro oriented x3 Psych mental status grossly normal Risk Stratification Risk Stratification Applicable: No Charges/Coding Visit Charges Inpatient E&M: 82633 Init Hosp L2 Objective Data Vital Signs: Vital Signs Temp Pulse Resp BP Pulse Ox 97.8 F 110 H 16 110/98 H 100 04/23/21 13:08 04/23/21 13:08 04/23/21 13:08 04/23/21 13:08 04/23/21 13:08 Oxygen Flow Rate (L/min) 0 Oxygen Delivery Method Room Air Weight: 294 lb 1.546 oz Body Mass Index (BMI) 37.3 Intake & Output: Intake and Output for Last 24 Hours 04/21/21 04/22/21 04/23/21 23:59 23:59 23:59 Intake Total 480 / 480 Balance 480 / 480 Lab / Micro Data Result Diagrams: 04/23/21 04:21 04/23/21 04:21 Labs: Laboratory Results - last 24 hr 04/22/21 17:20: WBC 7.2, RBC 5.21, Hgb 16.8 H, Hct 49.3, MCV 94.6 H, MCH 32.2 H, MCHC 34.1, RDW Std Deviation 46.4 H, RDW Coeff of Nika 13.3, Plt Count 219, MPV 9.9, Immature Gran % (Auto) 0.400, Neut % (Auto) 53.5, Lymph % (Auto) 35.1, [place] % (Auto) 5.3, Eos % (Auto) 5.0, Baso % (Auto) 0.7, Absolute Neuts (auto) 3.8, Absolute Lymphs (auto) 2.52, Nucleated RBC % 0 04/22/21 17:20: Sodium 135 L, Potassium 3.8, Chloride 105, Carbon Dioxide 27.0, Anion Gap 3 L, BUN 14, Creatinine 1.05, Estim Creat Clear Calc 96.44, Est GFR (MDRD) Af Amer 94, Est GFR (MDRD) Non-Af 78, BUN/Creatinine Ratio 13.3, Glucose 95, Calcium 9.0, Troponin I High Sens 5 04/22/21 17:20: D-Dimer Quant (PE/DVT) 0.55 H* 04/22/21 17:20: Magnesium 2.2 04/22/21 17:20: B-Natriuretic Peptide 85.4 04/22/21 17:20: PT 13.3, INR 1.1, APTT 27.8 04/22/21 19:24: Troponin I High Sens 7 04/22/21 23:57: Troponin I High Sens 5 04/23/21 04:21: WBC 6.3, RBC 4.75, Hgb 14.9, Hct 43.9, MCV 92.4, MCH 31.4, MCHC 33.9, RDW Std Deviation 44.5 H, RDW Coeff of Nika 13.2, Plt Count 188, MPV 9.9, Immature Gran % (Auto) 0.500, Neut % (Auto) 55.9, Lymph % (Auto) 33.3, [place] % (Auto) 4.5, Eos % (Auto) 5.0, Baso % (Auto) 0.8, Absolute Neuts (auto) 3.5, Absolute Lymphs (auto) 2.08, Nucleated RBC % 0 04/23/21 04:21: Sodium 137, Potassium 3.7, Chloride 106, Carbon Dioxide 26.0, Anion Gap 5, BUN 11, Creatinine 0.86, Estim Creat Clear Calc 117.75, Est GFR (MDRD) Af Amer 118, Est GFR (MDRD) Non-Af 97, BUN/Creatinine Ratio 12.7, Glucose 94, Calcium 8.3 L, Total Bilirubin 1.10 H, AST 13 L, ALT 24, Alkaline Phosphatase 54, Total Protein 8.1, Albumin 2.8 L, Globulin 5.3 H, Albumin/Globulin Ratio 0.5 L, TSH 2.27, Free T4 1.08 Micro: Microbiology 04/22/21 20:05 Nasal Secretion SARS-CoV-2 Antigen (Rapid) - Final Cardiology Labs/Tests 04/22/21 17:20: WBC 7.2, RBC 5.21, Hgb 16.8 H, Hct 49.3, MCV 94.6 H, MCH 32.2 H, MCHC 34.1, Plt Count 219, MPV 9.9, Immature Gran % (Auto) 0.400, Neut % (Auto) 53.5, Lymph % (Auto) 35.1, [place] % (Auto) 5.3, Eos % (Auto) 5.0, Baso % (Auto) 0.7, Absolute Neuts (auto) 3.8, Nucleated RBC % 0 04/22/21 17:20: Sodium 135 L, Potassium 3.8, Chloride 105, Carbon Dioxide 27.0, Anion Gap 3 L, BUN 14, Creatinine 1.05, Est GFR (MDRD) Af Amer 94, Est GFR (MDRD) Non-Af 78, BUN/Creatinine Ratio 13.3, Glucose 95, Calcium 9.0 04/22/21 17:20: D-Dimer Quant (PE/DVT) 0.55 H* 04/22/21 17:20: Magnesium 2.2 04/22/21 17:20: B-Natriuretic Peptide 85.4 04/22/21 17:20: PT 13.3, INR 1.1, APTT 27.8 04/23/21 04:21: WBC 6.3, RBC 4.75, Hgb 14.9, Hct 43.9, MCV 92.4, MCH 31.4, MCHC 33.9, Plt Count 188, MPV 9.9, Immature Gran % (Auto) 0.500, Neut % (Auto) 55.9, Lymph % (Auto) 33.3, [place] % (Auto) 4.5, Eos % (Auto) 5.0, Baso % (Auto) 0.8, Absolute Neuts (auto) 3.5, Nucleated RBC % 0 04/23/21 04:21: Sodium 137, Potassium 3.7, Chloride 106, Carbon Dioxide 26.0, Anion Gap 5, BUN 11, Creatinine 0.86, Est GFR (MDRD) Af Amer 118, Est GFR (MDRD) Non-Af 97, BUN/Creatinine Ratio 12.7, Glucose 94, Calcium 8.3 L, Total Bilirubin 1.10 H Rhythm: EKG: ECHO: Stress Test: Cardiac Cath: PCI: CT Surgery: Holter monitor: EPS: PPM: CXR: Chest CT Scan: Radiography Diagnostic Testing: Radiology Impression Chest X-Ray 04/22/21 17:47 IMPRESSION: Cardiomegaly with evidence of median sternotomy. There is no acute pulmonary disease. Electronically Signed: Gigi Hinds DO at 18:23 EST Tel [phone], Service support , Echocardiogram 04/22/21 21:12 Interpretation Summary The study was technically difficult. Based upon the 2D echocardiographic images obtained there appears to be grossly normal left ventricular size with borderline low LV systolic function. The estimated ejection fraction is 50 %. Post operative septal motion. The left atrium is mildly enlarged. The right atrium is mildly enlarged. There is mild mitral annular calcification. Mild focal mitral valve calcification of the anterior leaflet. Trivial mitral valve insufficiency. Stable bioprosthetic tricuspid valve apparatus. Mild transvalvular insufficiency of the tricuspid valve. Small to moderate pericardial effusion appearing predominantly posterior - lateral. There are no echocardiographic indications of cardiac tamponade. Unable to estimate RV systolic pressure/pulmonary artery pressure due to technically difficult study. Unable to assess diastolic dysfunction. Ordering Physician: Chula Hall Referring Physician: Alisha Beard Performed By: Karime Juares, ROLANDCS, RVT
== END 2021-04-23 13:39 | disposition home or self-care (01) ==
LOC: ED 20:21 → PCU 20:31
PROVIDERS: Admitting Provider Family Medicine; Emergency Provider Emergency Medicine; PCP Nurse Practitioner Family; Visit Provider Student in an Organized Health Care Education/Training Program
DX: I48.92 Unspecified atrial flutter (principal); C90.00 Multiple myeloma not having achieved remission; I48.0 Paroxysmal atrial fibrillation; Z79.82 Long term (current) use of aspirin; Z87.891 Personal history of nicotine dependence; I10 Essential (primary) hypertension; Z79.899 Other long term (current) drug therapy; E66.9 Obesity, unspecified; Z68.35 Body mass index [BMI] 35.0-35.9, adult; Z95.3 Presence of xenogenic heart valve; G47.33 Obstructive sleep apnea (adult) (pediatric); R06.02 Shortness of breath
CPT/HCPCS: 36415; 71045; 80048; 80053; 83735; 83880; 84439; 84443; 84484; 85025; 85379; 85610; 85730; 87426; 93005; 93306; 94660; 96372; 99218; 99251; 99285; J7030; Q9957; A4216; G0378; G0463